=== PATIENT | female | born 1955 | race African-American/Black ===

== ENCOUNTER 2019-02-28 23:21 | Inpatient (IN) | payer OTHER ==
[~2019-02-28] VITALS: Ht 165.1 cm; Wt 69.5 kg
[~2019-02-28 23:21] MED LIST: ALBU6.7H
[2019-03-01] MEDS ORDERED: SODIUM CHLORIDE 0.9% 1,000 ML IV ONE (01:23)
[2019-03-01] MEDS ORDERED: ASPIRIN 81MG TABLET PO ONE (01:30)
[2019-03-01] MEDS ORDERED: ONDANSETRON HCL 4MG/2ML INJ IV ONE (01:30)
[2019-03-01 02:01] LABS: CHLORIDE 106 mEq/L (98-107)
[2019-03-01 02:10] LABS: EOSINOPHILS % 4.3 % (0.0-5.0); HEMATOCRIT. 42.3 % (36.0-48.0); HEMOGLOBIN. 14.3 g/dL (12.0-16.0); LYMPHOCYTES % 34.4 % (20.0-50.0); MEAN CORPUSCULAR HEMOGLOBIN 24.9 pg (28.0-32.0); MEAN CORPUSCULAR VOLUME 73.8 fL (81.0-99.0); MEAN PLATELET VOLUME 10.2 fl (7.4-10.4); MONOCYTES % 10.5 % (2.0-8.0); NEUTROPHILS % 49.8 % (40.0-76.0); PLATELET 218 x1000/uL (130-400); RED BLOOD CELL COUNT 5.74 mill/uL (4.2-5.4); RED CELL DISTRIBUTION WIDTH 14.9 % (11.6-14.6)
[2019-03-01 02:12] LABS: D-DIMER < 0.19 mg/L FEU (<0.50); PARTIAL THROMBOPLASTIN TIME 26.1 sec (23.4-31.0); PROTHROMBIN TIME 10.4 sec (9.6-11.0)
[2019-03-01] MEDS ORDERED: DIPHENHYDRAMINE 50MG/ML VIAL IV PRN (06:00)
[2019-03-01] MEDS ORDERED: MAGNESIUM/ALUMINUM HYDROXIDE/SIMETHICONE 30ML UDC PO PRN (06:00)
[2019-03-01] MEDS ORDERED: ACETAMINOPHEN 325MG TABLET PO PRN (06:00)
[2019-03-01] MEDS ORDERED: HYDRALAZINE 20MG/ML VIAL IV PRN (06:00)
[2019-03-01] MEDS ORDERED: ONDANSETRON HCL 4MG/2ML INJ IV PRN (06:00)
[2019-03-01] MEDS ORDERED: HYDROCODONE/ACETAMINOPHEN 10/325MG TABLET PO PRN (06:00)
[2019-03-01] MEDS ORDERED: LORAZEPAM 2MG/ML CPJ IV PRN (06:00)
[2019-03-01] MEDS ORDERED: MORPHINE SULFATE 2 MG/ML CPJ (NOT FOR IM USE) IV PRN (06:00)
[2019-03-01] MEDS ORDERED: DOCUSATE SODIUM 100MG CAPSULE PO PRN (06:00)
[2019-03-01] MEDS ORDERED: IPRATROPIUM/ALBUTEROL 0.5-3(2.5)MG/3ML NEB HHN PRN (06:00)
[2019-03-01] MEDS ORDERED: DEXTROSE 50% WATER 50ML SYRINGE IV PRN (06:00)
[2019-03-01] MEDS ORDERED: CLONIDINE 0.1MG TABLET PO PRN (06:00)
[2019-03-01] MEDS ORDERED: GUAIFENESIN 200MG/10ML SUGAR FREE UDC PO PRN (06:00)
[2019-03-01] MEDS ORDERED: NA PHOS,M-B/NA PHOS,DI-BA ENEMA 118ML PR PRN (06:00)
[2019-03-01 06:53] LABS: CREATINE KINASE 157 IU/L (26-192)
[2019-03-01 06:54] LABS: CREATINE KINASE MB FRACTION 3.3 ng/mL (0.5-3.6)
[2019-03-01 08:45] VITALS: BP 113/64
[2019-03-01] MEDS: INSULIN LISPRO 100 UNITS/ML SUBCUT SCH ×4 (09:25→21:00)
[2019-03-01] MEDS: BLOOD SUGAR DIAGNOSTIC STRIP TEST SCH ×4 (09:25→21:09)
[2019-03-01] MEDS: ASPIRIN 81MG EC TABLET PO SCH (10:28)
[2019-03-01] MEDS: ENOXAPARIN 40MG/0.4ML SYR SUBCUT SCH (10:30)
[2019-03-01] MEDS: SODIUM CHLORIDE 0.9% INJ 3ML FLUSH IVF SCH ×3 (10:31→21:13)
[2019-03-01] MEDS: SODIUM CHLORIDE 0.9% 1,000 ML IV SCH ×2 (10:40→21:13)
[2019-03-01] MEDS ORDERED: FLUT1DIS3 INH (11:02)
[2019-03-01] MEDS ORDERED: PNEUMOCOCCAL 23-VAL P-SAC VAC 0.5 ML IM ONE (11:15)
[2019-03-01] MEDS ORDERED: INFLUENZA VIRUS VACCINE(AFLURIA) 0.5ML SYR IM ONE (11:15)
[2019-03-01 12:00] VITALS: BP 119/59
[2019-03-01 15:35] LABS: CREATINE KINASE 136 IU/L (26-192)
[2019-03-01 15:36] LABS: CREATINE KINASE MB FRACTION 2.8 ng/mL (0.5-3.6)
[2019-03-01] MEDS: DULOXETINE HCL 30MG DR CAPSULE PO SCH (15:51)
[2019-03-01 16:20] VITALS: BP 131/47
[2019-03-01 19:13] LABS: VITAMIN B12 SERUM >2000 pg/mL pg/mL (211-911)
[2019-03-01 20:00] VITALS: BP 114/67
[2019-03-02] VITALS: BP 92/64
[2019-03-02] MEDS: INSULIN LISPRO 100 UNITS/ML SUBCUT SCH ×4 (06:39→21:00)
[2019-03-02] MEDS: SODIUM CHLORIDE 0.9% INJ 3ML FLUSH IVF SCH ×3 (06:39→22:00)
[2019-03-02] MEDS: BLOOD SUGAR DIAGNOSTIC STRIP TEST SCH ×4 (06:39→21:00)
[2019-03-02 07:09] LABS: CHLORIDE 109 mEq/L (98-107)
[2019-03-02 07:26] LABS: HDL CHOLESTEROL 77 mg/dL (40-59)
[2019-03-02 07:27] LABS: LDL CHOLESTEROL 132 mg/dL (5-100)
[2019-03-02 07:28] LABS: T4 FREE 0.93 ng/dL (0.76-1.46)
[2019-03-02 07:33] LABS: BASOPHILS % 0.7 % (0.0-2.0); EOSINOPHILS % 3.4 % (0.0-5.0); HEMATOCRIT. 39.1 % (36.0-48.0); HEMOGLOBIN. 13.4 g/dL (12.0-16.0); LYMPHOCYTES % 28.6 % (20.0-50.0); MEAN CORPUSCULAR HEMOGLOBIN 25.1 pg (28.0-32.0); MEAN CORPUSCULAR VOLUME 73.1 fL (81.0-99.0); MEAN PLATELET VOLUME 10.1 fl (7.4-10.4); MONOCYTES % 10.4 % (2.0-8.0); NEUTROPHILS % 56.9 % (40.0-76.0); PLATELET 202 x1000/uL (130-400); RED BLOOD CELL COUNT 5.34 mill/uL (4.2-5.4); RED CELL DISTRIBUTION WIDTH 15.2 % (11.6-14.6)
[2019-03-02 08:00] VITALS: BP 131/61
[2019-03-02] MEDS: ENOXAPARIN 40MG/0.4ML SYR SUBCUT SCH (08:54)
[2019-03-02] MEDS: ASPIRIN 81MG EC TABLET PO SCH (08:54)
[2019-03-02] MEDS: DULOXETINE HCL 30MG DR CAPSULE PO SCH (08:54)
[2019-03-02 11:52] VITALS: BP 109/62
[2019-03-02] MEDS: SODIUM CHLORIDE 0.9% 1,000 ML IV SCH ×2 (13:43→23:13)
[2019-03-02] MEDS ORDERED: GADOBENATE DIMEGLUMINE 529 MG/ML 10ML IV ONE (14:05)
[2019-03-02 16:00] VITALS: BP 132/58
[2019-03-02 20:00] VITALS: BP 108/44
[2019-03-03] VITALS: BP 110/50
[2019-03-03 04:00] VITALS: BP 102/67
[2019-03-03] MEDS: SODIUM CHLORIDE 0.9% INJ 3ML FLUSH IVF SCH (05:40)
[2019-03-03] MEDS: BLOOD SUGAR DIAGNOSTIC STRIP TEST SCH ×2 (06:46→12:40)
[2019-03-03 08:00] VITALS: BP 102/45
[2019-03-03] MEDS: INSULIN LISPRO 100 UNITS/ML SUBCUT SCH ×2 (08:10→13:10)
[2019-03-03] MEDS: DULOXETINE HCL 30MG DR CAPSULE PO SCH (08:58)
[2019-03-03] MEDS: ASPIRIN 81MG EC TABLET PO SCH (08:58)
[2019-03-03] MEDS: ENOXAPARIN 40MG/0.4ML SYR SUBCUT SCH (08:58)
[2019-03-03 13:41] VITALS: BP 109/63
== END 2019-03-03 16:22 | disposition home or self-care (01) | DRG 312 ==
LOC: ER 23:21 → 7WST 03-01 04:50 → ENRESERV 03-01 07:11
PROVIDERS: ADMIT Internal Medicine; ATTEND Internal Medicine
DX: R55 Syncope and collapse (principal); E11.9 Type 2 diabetes mellitus without complications; E78.5 Hyperlipidemia, unspecified; I10 Essential (primary) hypertension; J45.909 Unspecified asthma, uncomplicated; Z79.51 Long term (current) use of inhaled steroids; Z82.49 Family history of ischemic heart disease and other diseases of the circulatory system; F32.9 Major depressive disorder, single episode, unspecified
CPT/HCPCS: 36415; 70553; 71045; 80061; 82550; 82553; 82607; 82962; 83036; 83880; 84439; 84443; 84484; 85379; 90686; 93005; 93306; 93970; 95816; 97162; 99285; A9577; J1650; J2405; J7030

== ENCOUNTER 2021-07-14 12:35 | Emergency (ER) | payer MEDICAID, OTHER ==
[~2021-07-14] VITALS: Ht 167.6 cm; Wt 63.0 kg
[~2021-07-14 12:35] MED LIST changes: -ALBU6.7H; +ALBU6.7H15; +FLUT1DIS3 INH
[2021-07-14] MEDS ORDERED: ASPIRIN 81MG TABLET PO ONE (13:30)
[2021-07-14] MEDS ORDERED: NITROGLYCERIN OINT 1GM/INCH UDPKT TD ONE (13:30)
[2021-07-14 13:59] LABS: CHLORIDE 107 mEq/L (98-107)
[2021-07-14 14:31] LABS: BASOPHILS % 1.5 % (0.0-2.0); EOSINOPHILS % 3.4 % (0.0-5.0); HEMATOCRIT. 36.9 % (36.0-48.0); LYMPHOCYTES % 36.2 % (20.0-50.0); MEAN CORPUSCULAR HEMOGLOBIN 26.2 pg (28.0-32.0); MEAN CORPUSCULAR VOLUME 74.6 fL (81.0-99.0); MEAN PLATELET VOLUME 9.8 fl (7.4-10.4); MONOCYTES % 9.4 % (2.0-8.0); NEUTROPHILS % 49.5 % (40.0-76.0); PLATELET 178 x1000/uL (130-400); RED BLOOD CELL COUNT 4.95 mill/uL (4.2-5.4); RED CELL DISTRIBUTION WIDTH 14.5 % (11.6-14.6)
[2021-07-14] MEDS ORDERED: ACETAMINOPHEN 325MG TABLET PO NR (16:45)
[2021-07-14] MEDS ORDERED: ASPI-1497 MT (17:54)
[2021-07-14 17:58] VITALS: BP 126/81
== END 2021-07-14 18:13 | disposition home or self-care (01) ==
LOC: ER 12:35 → EDBEDREQTM 14:30 → ER 18:13 → CANBEDREQ 19:18
DX: R07.89 Other chest pain (principal); E11.9 Type 2 diabetes mellitus without complications; J45.909 Unspecified asthma, uncomplicated; Z20.822 Contact with and (suspected) exposure to COVID-19; Z79.82 Long term (current) use of aspirin
CPT/HCPCS: 36415; 71045; 80053; 83880; 84484; 85025; 87426; 93005; 99285